=== PATIENT | male | born 1995 | race Caucasian/White ===

== ENCOUNTER 2022-05-19 10:39 | Emergency (ER) | payer OTHER, SELFPAY ==
--- NOTE | ~2022-05-19 | XR_ITS ---
EXAMINATION: XR FINGER, LEFT CLINICAL INFORMATION: Pressurized air hit hand COMPARISON: None TECHNIQUE: Three views of the left index finger. FINDINGS: Comminuted mildly displaced fracture involving the second proximal phalanx with intra-articular extension at its proximal and distal aspect. Soft tissue swelling overlying the fracture site. Joint spaces and alignment are otherwise maintained. XR/XR finger LT min 2V IMPRESSION: 1. Comminuted mildly displaced fracture involving the second proximal phalanx with intra-articular extension at its proximal and distal aspect. 2. Soft tissue swelling overlying the fracture site.
[2022-05-19 10:42] VITALS: BP 142/83; PULSE 54; RESP 16; TEMP 36.7; O2SAT 99; BMI 23.6
--- NOTE | 2022-05-19 11:13 | ED.WOUNDLAC ---
HPI - Wound/Laceration General Chief Complaint: Wound/Laceration Stated Complaint: work INJ/finger lac. Time Seen by Provider: 05/19/22 11:03 Source: patient Mode of arrival: ambulatory Limitations: no limitations History of Present Illness HPI narrative: 26 yo male right hand dominant presents to the ER for evaluation of a left index finger injury sustained at work today. 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 He reports wounds on both sides of the finger, possibly an entry wound and an exit wound. He cannot bend the finger due to pain. He went to an Urgent care for evaluation, however they did not have x-ray services so he was told to come to the ER. He denies any numbness to the finger, just throbbing pain. He arrives with his finger wrapped in coban, bloody dressing. Onset (ago): minute(s) Extremity Location: left: hand (index finger) Place: work Patient tetanus UTD: No Context: accidental Associated symptoms: pain and unable to move injured part Treatments prior to arrival: bandage Related Data Previous Rx's Medication Instructions Recorded amoxicillin 875 mg-potassium 1 tab PO BID #14 tabs 05/19/22 clavulanate 125 mg tablet ibuprofen 600 mg tablet 600 mg PO Q8H PRN pain #20 tabs 05/19/22 oxycodone 5 mg tablet 5 mg PO Q8H PRN severe pain (scale 05/19/22 score 7-10) #6 tabs Allergies Allergy/AdvReac Type Severity Reaction Status Date / Time Unable to Assess Allergy Unverified 05/19/22 11:05 Review of Systems Review of Systems: Constitutional: No Fever, No Chills Cardiovascular: No Chest Pain, No SOB Gastrointestinal: No Nausea, No Vomiting, Musculoskeletal: + joint pain, No Myalgias Skin: + Skin Lesions, No rash Neuro: No Weakness, No Numbness, No Dizziness, No Headache Psych: + Anxiety/Panic Heme/Lymph: +Bruising, No Lymphadenopathy PMFSH Social History Social History Advance Directives: No Advance Directives Information Provided: No Physical Exam Vital Signs: Vital Signs: Last Vital Signs Temp 98.1 F 05/19/22 10:42 Pulse 54 05/19/22 10:42 Resp 16 05/19/22 10:42 BP 142/83 H 05/19/22 10:42 Pulse Ox 99 05/19/22 10:42 O2 Del Method 05/19/22 10:42 BMI result Body Mass Index 23.6 Appearance: Alert. Oriented X3. No acute distress. HEENT: normal inspection CVS: Normal heart rate and rhythm. Pulses normal. Respiratory: No respiratory distress. Skin: Skin warm and dry. Normal skin color. Normal skin turgor. No rashes. Extremities: left index finger with generalized swelling of the entire digit, on the palmar aspect of the finger there is 2 small ecchymotic areas and punctate wound with pulsitile bleeding. on the dorsal aspect of the finger over the PIP joint there is an irregular wide wound with oozing and irregular borders. cap refill <3 sec. normal adduction and abduction of the digits. Neuro: Oriented X 3. unable to flex the PIP joint of the left index finger, minimal flexion at the DIP joint. Course Course Course Narrative: 18-year-old male presents to the ER for evaluation of left index finger injury from a pressure valve. he has wounds over the PIP joint and a small puncture wound with bruising on the palmar aspect of the finger, both actively oozing. He is unable to flex at the PIP joint due to pain. Concern for fracture. Also concern for possible foreign body. X-rays pending. Will give tetanus shot, pain control and repair the wounds. He will need follow-up with hand specialist. Reevaluation(s) Reevaluation #1: X-ray with comminuted mildly displaced fracture involving the 2nd proximal phalanx with intra-articular extension at its proximal and distal aspect. Soft tissue swelling overlying the fracture site. Wound was extensively irrigated. See procedure notes. Sutures were used to control the bleeding on the palmar aspect and to reapproximate the edges of the wound on the PIP joint. Active oozing still on the PIP joint wound, Surgicel applied as well as a dry sterile dressing, finger was splinted. Orthopedics was contacted and he will follow-up in the office. Will give antibiotics for open fracture. We discussed wound care and additional dressings supply was provided. He is stable for discharge home with outpatient follow-up. Procedures Laceration Laceration 1: Site: hand Side (If applicable): left Size (cm): 2 Description: stellate, irregular and contaminated Depth: involves muscle layer Local Anesthetic: lidocaine 1% Pre-repair: wound explored and irrigated extensively Skin layer closed with: nylon Size (cm): 4-0 Number of sutures: 3 Technique: simple, interrupted Laceration 2: Site: hand Side (If applicable): left Size (cm): 0.5 Description: irregular and other (punctate, actively bleeding) Local Anesthetic: lidocaine 1% Pre-repair: wound explored and irrigated extensively Skin layer closed with: nylon Size (cm): 4-0 Number of sutures: 1 Technique: simple, interrupted Nerve Block Nerve Block 1: Time out performed: Yes Local Anesthetic: lidocaine 1% Amount of anesthesia used (mL): 6 Side: left Nerve Blocks: digital Procedure Successful: Yes Patient Tolerated Procedure: well and no complications Complications: bleeding Orthopedic Splinting/Casting Injury #1: Side: left Upper Extremity Injury Location: finger Upper Extremity Immobilizer: finger (other) and terrance tape Discharge Plan Discharge Clinical Impression: Open finger fracture Patient Disposition: Home, Self-Care Instructions: Finger Fracture (ED) Additional Instructions: Your x-ray today showed an extensive fracture of your left middle finger. XR read: comminuted mildly displaced fracture involving the 2nd proximal phalanx with intra-articular extension at its proximal and distal aspect. Soft tissue swelling overlying the fracture site It is important that you take the prescribed antibiotics to help prevent infection. Take the prescribed ibuprofen around the clock for pain and swelling. Take the prescribed oxycodone as needed for severe pain. Recommend elevating and icing your finger as often as possible. Change the dressing daily. Do not get wet. You will need the sutures out in 7 days. Recommend following up with the hand specialist, name and number below. They are aware of your case and will be calling you to arrange an appointment. Where the provided splint to immobilize the finger and allow healing. You can take it off to shower only. If you develop new or worsening symptoms call 911 or come back to the ER for further evaluation. Prescriptions: New amoxicillin-pot clavulanate 875-125 mg tablet 1 tab PO BID Qty: 14 0RF ibuprofen 600 mg tablet 600 mg PO Q8H PRN (Reason: pain) Qty: 20 0RF oxycodone 5 mg tablet 5 mg PO Q8H PRN (Reason: severe pain (scale score 7-10)) Qty: 6 0RF Rx Instructions: Partial Fill upon patient request. Referrals: [facility] [Provider Group] [facility] [Provider Group] Interventions: ED Discharge Assessment Last Done: 05/19/22 13:11 Discharge Date/Time: 05/19/22 13:13
[2022-05-19] MEDS: Diphth,Pertus(ACell),Tet Adult 0.5 ML SYRINGE IM (12:23)
[2022-05-19] MEDS: Ibuprofen 600 MG TABLET PO (12:25)
[2022-05-19] MEDS: Lidocaine HCl 1 % 20 ML VIAL 30 ML INFILTRATI (12:26)
== END 2022-05-19 13:13 | disposition home or self-care (01) ==
PROVIDERS: Emergency Provider Emergency Medicine
DX: S61.211A Laceration without foreign body of left index finger without damage to nail, initial encounter (principal); S60.512A Abrasion of left hand, initial encounter; M79.642 Pain in left hand; Y28.9XXA Contact with unspecified sharp object, undetermined intent, initial encounter; Y93.9 Activity, unspecified; Y92.9 Unspecified place or not applicable; Y99.0 Civilian activity done for income or pay; Y29.XXXA Contact with blunt object, undetermined intent, initial encounter; Z79.899 Other long term (current) drug therapy
CPT/HCPCS: 12001; 29130; 73140; 90471; 90715; 99283; 99284

== ENCOUNTER 2022-05-25 18:00 | Outpatient (REF) | payer OTHER, SELFPAY ==
--- NOTE | ~2022-05-25 | XR_ITS ---
EXAMINATION: XR HAND, LEFT CLINICAL INFORMATION: Pain in left hand COMPARISON: 05/19/2022 TECHNIQUE: PA, lateral, and oblique views of the left hand. FINDINGS: Comminuted fracture of the second proximal phalanx with extension to the second proximal interphalangeal joint again seen. Although there is a thin lucency, there is no definite offset at the base of the phalanx to confirm extension to the metacarpophalangeal joint. Similar degree of displacement. The fracture lines remain readily evident. No fracture callus seen. No additional fractures. Soft tissue swelling is improved. XR/XR hand LT min 3V IMPRESSION: Similar appearance of comminuted mildly displaced fracture of the second proximal phalanx with intra-articular extension to the PIP joint.
== END 2022-05-25 18:01 | disposition home or self-care (01) ==
LOC: HO.HOSX 18:00
PROVIDERS: Visit Provider Orthopaedic Surgery
DX: M79.642 Pain in left hand (principal)
CPT/HCPCS: 73130

== ENCOUNTER → 2022-05-26 12:21 | Outpatient (BNVA) | payer OTHER, SELFPAY | PROVIDERS: Visit Provider Orthopaedic Surgery | DX: S62.611B Displaced fracture of proximal phalanx of left index finger, initial encounter for open fracture (principal) | CPT/HCPCS: 99202 ==

== ENCOUNTER 2022-06-01 11:34 | Day surgery (SDC) | payer OTHER, SELFPAY ==
--- NOTE | 2022-05-27 10:00 | HO.ANESPROP2 ---
Documented by User: Zaina Gilliam NP 05/27/22 10:01 HPI - Anesthesia Eval Consult details Narrative: 26yo M for Left Index Finger Fx CRPP vs ORIF, Left I&D Index finger PMFSH Active Problems Active Problems: All Active Problems (Updated 05/26/22 @ 13:46 by Hayder Talbert) Open fracture of proximal phalanx of left index finger (Acute) Surgical History Surgical History (Updated 06/01/22 @ 15:19 by Grecia Salcido MD) History of tooth extraction Social History Social History (Updated 06/01/22 @ 15:21 by Grecia Salcido MD) Patient Tobacco Use Status: Former Tobacco user Quit Date: 2015 Use of substances other than those prescribed or required for medical reasons: Yes Substance Use Type: Marijuana Substance Use Frequency: Monthly Last Used Substance: Hours (ago) Last Used Substance Other:: Yesterday Currently Displaying Signs/Symptoms of Drug Intoxication Withdrawal: No Are you DNR?: No Advance Directives: No Advance Directives Information Provided: Yes Current occupational status: employed 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 Allergies Allergy/AdvReac Type Severity Reaction Status Date / Time No Known Allergies Allergy Verified 05/26/22 12:52 Exam Exam Date and Time: May 27, 2022 1000 Assessment and Plan Assessment Anesthesia Assessment: Chart Reviewed Documented by User: Grecia Salcido MD 06/01/22 15:25 PMFSH Family History Family history of problems with anesthesia: No Surgical History Surgical History (Updated 06/01/22 @ 15:19 by Grecia Salcido MD) History of tooth extraction History of Problems with Anesthesia: No Social History Social History (Updated 06/01/22 @ 15:21 by Grecia Salcido MD) Patient Tobacco Use Status: Former Tobacco user Quit Date: 2015 Use of substances other than those prescribed or required for medical reasons: Yes Substance Use Type: Marijuana Substance Use Frequency: Monthly Last Used Substance: Hours (ago) Last Used Substance Other:: Yesterday Currently Displaying Signs/Symptoms of Drug Intoxication Withdrawal: No Are you DNR?: No Advance Directives: No Advance Directives Information Provided: Yes Current occupational status: employed 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 Good extension ) Loose/Missing/Broken Teeth: Yes (Extraction) Heart: RRR Lungs: CTAB Assessment and Plan Assessment Anesthesia Assessment: Anesthesia Plan Discussed Final Anesthetic Review Family History of Problems with Anesthesia: No History of Problems with Anesthesia: No NPO: Yes ASA Class: II Final Preanesthetic Review: No Changes in Pt Med Stat, Meds/Allgs Chart Reviewed, Consent Obtained/Reviewed and Anes Risks/Benef Reviewed Patient Risk: Low Procedure Risk: Low Assessment/Block/Sedation in SS: Assess/Block/Sedation-SS Anesthetic Plan Anesthetic Plan: GA Disposition: Standard PACU
--- NOTE | ~2022-06-01 | FL_ITS ---
EXAMINATION: XR FLUOROSCOPY WITH IMAGES CLINICAL INFORMATION: Second finger or internal fixation proximal phalanx fracture. COMPARISON: 05/26/2022 and 05/19/2022. TECHNIQUE: Fluoroscopy performed by Dr. Jeniffer Vaughn. Fluoroscopy time: 89.52 seconds. Cumulative Dose: 2.0164 mGy. DAP: 0.1219 Gycm2. Images: 13. FINDINGS: Intraoperative imaging demonstrates screw and K-wire placement for comminuted fracture second proximal phalanx. FL/FL guidance in OR IMPRESSION: Fluoroscopy intraoperatively for orthopedic procedure.
[2022-06-01 14:21] VITALS: BMI 24.5
[2022-06-01 14:34] VITALS: BP 130/77; PULSE 54; RESP 16; TEMP 36.8; O2SAT 99
[2022-06-01] MEDS: Lactated Ringers 1,000 ML 100 ML IVCONT (14:35)
--- NOTE | 2022-06-01 15:28 | MHC.SHP ---
Pre-Procedural Eval Section A Date of Service: 06/01/22 The patient is an INPATIENT: No Changes since office visit: No Cold of Flu in the past 2 weeks, No New Medical Problems, No Changes in Medication and No Patient answered all questions The History & Physical has been completed within 30 days and I have reviewed it.: Yes Section B Chief Complaint: Displaced fracture of proximal phalanx of left ind Allergies: Allergies Allergy/AdvReac Type Severity Reaction Status Date / Time No Known Allergies Allergy Verified 05/26/22 12:52 Plan I have reviewed the history and physical and performed a pertinent physical examination on my patient. No changes have occurred unless specified.
--- NOTE | 2022-06-01 15:29 | P.OP_ITS ---
Operative Note Operative Note Date of Service: 06/01/22 Narrative: Operative Note Narrative: Preop diagnosis: 1. open left index finger open comminuted distal intra-articular fracture Postop diagnosis: Same Procedure: 1. left index finger proximal phalanx open reduction internal fixation Surgeon: Jeniffer Vaughn MD Anesthesia: General Anesthesia Findings: left index finger comminuted shaft fracture extending into distal articular surface. Both the dorsal and volar wounds appear to be well healed now and with no evidence of infection. He already has some evidence of interval bony healing with only minimal motion with pistoning of the fracture site. Implants: 0.045 K-wires times 2, and 1 Raymond 2.0 mm x 10 mm cannulated cortical screw Tourniquet time: 35 minutes EBL: Minimal Specimen: None Drains: None Complications: None Disposition: Brought to the recovery room in stable condition Plan: Follow-up in 10-14 days for a wound check, postop radiographs and for placement in a short-arm finger spica cast Anticipate K-wire removal in 3-4 weeks based on interval bony healing Educate the patient that full fracture healing anticipated in approximately 8-12 weeks. Indications: The patient is 26 years old with an open left index finger proximal phalanx fracture from a compressed air injury . The risks and benefits of operative treatment, including but not limited to risk of damage to blood vessels, nerves, tendons, infection, recurrence, delayed or nonunion of fracture, persistent pain or numbness, incomplete resolution of preoperative symptoms, or need for further surgery were discussed with the patient and they wished to proceed with surgery. Procedure: Once consent was obtained patient was brought back to the operating suite and placed in the operating table in a supine position. . Perioperative antibiotics and general anesthesia was administered by the anesthesia team. A tourniquet was applied to the proximal aspect of the left upper extremity and the limb was prepped and draped in a standard surgical fashion. the limb was elevated and exsanguinated with an Esmarch bandage and the tourniquet inflated to 250 mmHg for a total tourniquet time of 35 minutes.. The FluoroScan was used during the case to assist with our fracture reduction and placement of all implants. The patient is now 2 weeks out from his injury. This is a highly comminuted fracture. Both the dorsal and volar wounds are now well healed and there is no evidence of infection after oral antibiotic treatment. The fracture was evaluated fluoroscopically, and again we saw a the significant comminution of the shaft of the proximal phalanx with extension into the distal articular surface. Pistoning of the fracture showed only minimal motion at the fracture site indicating early evidence of interval bony healing. His clinical and radiographic fracture alignment was satisfactory. I elected not to open the fracture site for an I and D, as 2 weeks after his injury we had no evidence of infection, he had completed his oral antibiotics, and I did not want to disturb the bony healing at this complex fracture site. I did however feel he would benefit from improving the reduction and fixation at the articular surface. A tenaculum was used to compress the fracture at the distal articular site. We were able to improve the reduction by closing down the displacement. I then made a 1 cm longitudinal incision over the ulnar aspect of the distal aspect of the proximal phalanx. The incision was made through the skin to the subcutaneous tissues. I then dissected down to the ulnar cortex. I then passed the guidewire for the Raymond 2.0 cannulated screw set. This was passed from ulnar to radial just proximal to the articular surface. I then reamed over this guidewire using the long slender Reamer for the 2.0 mm cannulated screw set. We measured for a 12 mm x 2 mm cortical screw. I also used the short fat cannulated Reamer to open up the near cortex for placement of the screw. The screw was then advanced over fracture site. I was pleased with the improved reduction but felt that the screw was somewhat proud radially. The screw was then removed and replaced with a 10 mm x 2 mm cortical screw. I then passed the 1st of 20.045 K-wires through the ulnar base of the proximal phalanx. This was then advanced distally across our fracture site to where it impacted our screw. I then passed a 2nd 0.045 K-wire through the radial base of the proximal phalanx. This was advanced across our fracture site and to the distal ulnar aspect of the proximal phalanx. I was satisfied with our fixation on fluoroscopic images, and also with our clinical alignment. I saw no rotational or angular malalignment. Once satisfied with our fracture reduction and implant placement, the K-wires were bent and cut short and pin caps applied. Final fluoroscopic images were then obtained. The wounds were copiously irrigated with normal saline. The skin edges were reapproximated with some 5 0 nylon suture material. A digital block was performed using some 0.5% plain ropivacaine. A Sterile dressing and short volar splint extending to the forearm was applied. The patient appears to have jose erated the procedure well and with no complications. All digits were well vascularized at the conclusion of the case.
[2022-06-01 17:21] VITALS: BP 115/65; PULSE 60; RESP 15; TEMP 36.2; O2SAT 100
[2022-06-01 17:26] VITALS: BP 120/70; PULSE 58; RESP 16; O2SAT 98
[2022-06-01 17:31] VITALS: BP 109/62; PULSE 67; RESP 16; O2SAT 100
[2022-06-01 17:36] VITALS: BP 126/76; PULSE 92; RESP 16; TEMP 36.3; O2SAT 100
[2022-06-01 17:51] VITALS: BP 130/76; PULSE 66; RESP 16; TEMP 36.7; O2SAT 100
== END 2022-06-01 18:25 | disposition home or self-care (01) ==
PROVIDERS: Visit Provider Orthopaedic Surgery
PROC: (CPT 26735; principal; 2022-06-01 14:10)
PROC: (CPT 26735; 2022-06-01 14:10)
DX: S62.611B Displaced fracture of proximal phalanx of left index finger, initial encounter for open fracture (principal); M79.642 Pain in left hand; R20.0 Anesthesia of skin; X58.XXXA Exposure to other specified factors, initial encounter; Y93.89 Activity, other specified; Y92.89 Other specified places as the place of occurrence of the external cause; Y99.0 Civilian activity done for income or pay
CPT/HCPCS: 26735; C1713; J0171; J0690; J1100; J2250; J2405; J2795; J3010

== ENCOUNTER 2022-06-15 10:49 | Outpatient (REF) | payer OTHER, SELFPAY ==
--- NOTE | ~2022-06-15 | XR_ITS ---
EXAMINATION: XR HAND, LEFT CLINICAL INFORMATION: Pain COMPARISON: May 1822 TECHNIQUE: PA, lateral, and oblique views of the left hand. FINDINGS: 2 pins and compression screws seen in the proximal phalanx of second finger. Fragments are close to anatomical alignment. Fracture is still visualized. Soft tissues are unremarkable. XR/XR hand LT min 3V IMPRESSION: Status post ORIF of fracture of the proximal phalanx of second finger.
== END 2022-06-15 10:50 | disposition home or self-care (01) ==
LOC: HO.HOSX 10:49
PROVIDERS: Visit Provider Orthopaedic Surgery
DX: M79.642 Pain in left hand (principal)
CPT/HCPCS: 73130

== ENCOUNTER 2022-06-29 16:29 | Outpatient (REF) | payer OTHER, SELFPAY ==
--- NOTE | ~2022-06-29 | XR_ITS ---
EXAMINATION: XR HAND, LEFT CLINICAL INFORMATION: Pain, left hand. COMPARISON: 06/16/2022 TECHNIQUE: PA, lateral, and oblique views of the left hand. FINDINGS: A pin has been removed. Once again comminuted fracture of the proximal phalanx of the 2nd digit is noted. This is intimately involved with the fracture site. The screw remains unchanged in position distally. XR/XR hand LT min 3V IMPRESSION: Only one pin is now seen entering from the radial aspect into the fracture region from the base of the proximal phalanx. Once again comminuted fracture of the proximal phalanx not significantly changed in position from previous. Fracture lines are still well visible. The screw in the distal aspect of the proximal phalanx is unchanged in position.
== END 2022-06-29 16:30 | disposition home or self-care (01) ==
LOC: HO.HOSX 16:29
PROVIDERS: Visit Provider Orthopaedic Surgery
DX: M79.642 Pain in left hand (principal)
CPT/HCPCS: 73130

== ENCOUNTER 2022-07-13 14:10 | Outpatient (REF) | payer OTHER, SELFPAY ==
--- NOTE | ~2022-07-13 | XR_ITS ---
EXAMINATION: XR HAND, LEFT CLINICAL INFORMATION: Follow-up fracture index finger. COMPARISON: Left hand 06/30/2022 TECHNIQUE: PA, lateral, and oblique views of the left hand. FINDINGS: There is solitary screw traversing from the dorsal aspect distal end of the proximal phalanx index finger stabilizing comminuted fracture mid segment. There is no callus formation seen. Previously seen solitary pin on the last exam has been removed. There is now slight diastases seen in the fracture fragments. The soft tissues are normal. XR/XR hand LT min 3V IMPRESSION: Internal fixation of comminuted fracture mid segment proximal phalanx index finger with a solitary screw. There is no callus formation seen at this time. Solitary pin at the fracture site has been removed. There is mild diastases of the fracture fragments.
== END 2022-07-13 14:11 | disposition home or self-care (01) ==
LOC: HO.HOSX 14:10
PROVIDERS: Visit Provider Orthopaedic Surgery
DX: Z13.89 Encounter for screening for other disorder (principal)

== ENCOUNTER → 2022-08-18 13:48 | Outpatient (BNVA) | payer OTHER, SELFPAY | PROVIDERS: Visit Provider Orthopaedic Surgery | DX: Z13.89 Encounter for screening for other disorder (principal) ==

== ENCOUNTER 2022-09-15 11:16 | Outpatient (REF) | payer OTHER, SELFPAY ==
--- NOTE | ~2022-09-15 | XR_ITS ---
EXAMINATION: XR HAND, LEFT CLINICAL INFORMATION: Fracture follow-up, pain COMPARISON: Radiographs 07/15/2022 TECHNIQUE: PA, lateral, and oblique views of the left hand. FINDINGS: Interval partial healing of the comminuted fracture of the 1st proximal phalanx. Longitudinal fracture lines are less conspicuous. The distal transverse screw is in stable position. No new abnormality. XR/XR hand LT min 3V IMPRESSION: Partial healing of the 1st proximal phalanx fracture.
== END 2022-09-15 11:17 | disposition home or self-care (01) ==
LOC: HO.HOSX 11:16
PROVIDERS: Visit Provider Orthopaedic Surgery
DX: S62.611B Displaced fracture of proximal phalanx of left index finger, initial encounter for open fracture (principal)
CPT/HCPCS: 73130; 99212

== ENCOUNTER 2022-10-27 09:32 | Outpatient (REF) | payer OTHER, SELFPAY | END 2022-10-27 09:33 | disposition home or self-care (01) | LOC: HO.HOSX 09:32 | PROVIDERS: Visit Provider Orthopaedic Surgery | DX: Z13.89 Encounter for screening for other disorder (principal) ==

== ENCOUNTER 2022-11-05 15:30 | Outpatient (RCR) | payer OTHER, MEDICAID, SELFPAY ==
--- NOTE | 2022-08-13 10:29 | MHC.OT.EP ---
[address] [phone] Occupational Therapy Plan of Care Date of Evaluation: 08/13/22 Diagnosis: Left index finger fracture Assessment: Pt. is a 26 y/o male s/p work related injury where a pressurized tank exploded, causing left index finger proximal phalanx open comminuted intra-articular fracture. He underwent ORIF with PP & I&D. Date of injury: 05/19/22. Pt is healing well and has returned to work with a 3lb weight restriction. 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 Pt. would benefit from skilled OT services to address ROM, desensitizing, and strengthening to increase function and return to PLOF. Frequency and Duration: The patient will be seen 2x/wk for 6 weeks Short Term Goals: Decrease left index finger pain to <2/10 w/ functional tasks IND with HEP Improve left index finger PIP flexion by 10 degrees IND with scar massage and desensitizing techniques Alf Goals: Pain free with BADL's/IADL's Pt. will make full composite fist to safely grasp heavy objects Gross grasp >50# Quick DASH <15% Treatment Plan: Therapeutic Exercise Therapeutic Activity Home Exercise Program Patient Education Desensitization/Sensory Re-ed Paraffin Fluidotherapy MHP Joint Mobilization Soft Tissue Mobilization Electronically Signed By: Mary Beth Connors MS OTR/L Please Sign and return to therapist. Thank you once again for your referral.
--- NOTE | 2022-10-06 16:34 | MHC.OT.OP ---
[address] [phone] F: [phone] Occupational Therapy Progress Note Diagnosis: Left index finger fracture Date of Surgery: 06/01/22 Date of Evaluation: 08/13/22 Treatments to Date: 13 Cancellations to Date: No Shows to Date: Subjective: 10/06/22 It still numb. 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 Wakes in am with left hand numbness Pain Score: 1 Pain Location: Left index finger Objective Measures: 10/06/22 AROM INDEX PIP 10/50 DEG PROM 70 deg DIP 55 PROM 70 Quick DASH 34 pts . Positive Carpal compression test on left. 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 He will benefit from increased wear time of his dynamic flexion splint around his work and home activities as he is able. 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 will make full composite fist to safely grasp heavy objects Gross grasp >50# Quick DASH <15% Frequency and Duration: The patient will be seen 2x wk x 4 wks Treatment Plan: Therapeutic Exercise Therapeutic Activity Home Exercise Program Splinting Neuro Re-ed Ultrasound Paraffin Joint Mobilization Electronically Signed By: Lyndsey White OT CHT CLT Reviewed/agree with student documentation: Therapist:
--- NOTE | 2022-11-05 16:12 | MHC.OT.DC ---
[address] [phone] F: [phone] Occupational Therapy Discharge Note Patient Name: Vladislav Winslow Provider: Jenfifer Vaughn Diagnosis: Left index finger fracture Date of Surgery: 06/01/22 Date of Evaluation: 08/13/22 Date of Discharge: 11/05/22 Treatments to Date: 20 Cancellations to Date: 1 Discharge Status: Achieved Goals Improved Function Independent with HEP Discharge Summary: Cain has been seen for 20 OT visits and has progressed very well. Functional gains as follows: Pt. is pain free at rest and has only minimal pain with forceful grasp. 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 Pt is able to make near full fist of left hand is he is safely carrying heavy items and has resumed lifting at the gym without fear of loosing grasp. Index finger ROM is PIP 10/50 DEG PROM 80 deg DIP 55/70. Pt is IND with scar management techniques and is very compliant with all home exercise programs. At this time, pt is in agreement with discharge and will continue with home program. Electronically Signed By: Mary Beth Connors MS OTR/L Reviewed/agree with student documentation: Therapist: Please Sign and return to therapist, thank you for your referral.
== END 2022-11-05 16:13 | disposition home or self-care (01) ==
LOC: HO.OT 15:30
PROVIDERS: Visit Provider Orthopaedic Surgery
DX: S62.611B Displaced fracture of proximal phalanx of left index finger, initial encounter for open fracture (principal)
CPT/HCPCS: 29125; 29131; 97018; 97035; 97110; 97140; 97165; 97760

== ENCOUNTER 2023-06-24 09:36 | Emergency (ER) | payer OTHER, SELFPAY ==
--- NOTE | ~2023-06-24 | XR_ITS ---
EXAMINATION: XR FOOT, RIGHT CLINICAL INFORMATION: Direct trauma to the foot. Pain COMPARISON: None available. TECHNIQUE: AP, lateral, and oblique views of the right foot. FINDINGS: No fracture, dislocation or destructive process. XR/XR foot RT min 3V IMPRESSION: Normal right foot.
--- NOTE | ~2023-06-24 | XR_ITS ---
EXAMINATION: XR ANKLE, RIGHT CLINICAL INFORMATION: Lateral pain COMPARISON: None available. TECHNIQUE: AP, lateral, and mortise views of the right ankle. FINDINGS: No fracture. Alignment is anatomic. No erosions. Joint spaces are maintained. Soft tissues are normal. XR/XR ankle RT min 3V IMPRESSION: Normal right ankle.
[2023-06-24 09:54] VITALS: BP 131/67; PULSE 67; RESP 17; TEMP 36.8; O2SAT 98; BMI 23.7
--- NOTE | 2023-06-24 10:10 | ED.LOWEXIN ---
HPI - Extremity Injury (Lower) General Chief Complaint: Extremity Injury, Lower Stated Complaint: R Foot Injury Work 06/23/23 Time Seen by Provider: 06/24/23 10:01 Source: patient, RN notes reviewed and old records reviewed Mode of arrival: ambulatory History of Present Illness HPI Narrative: 27-year-old male with no significant past medical history presenting to the ED complaining of right foot pain and swelling s/p 950 lb liquid tank rolling over foot yesterday at work. Denies injury to other area. Has been minimally ambulatory secondary to pain. Denies numbness, tingling, weakness, fever MD complaint: foot injury Related Data Previous Rx's Medication Instructions Recorded ibuprofen 600 mg tablet 600 mg PO Q8H PRN pain #20 tabs 05/19/22 Allergies Allergy/AdvReac Type Severity Reaction Status Date / Time No Known Allergies Allergy Verified 09/15/22 14:19 Review of Systems Review of Systems: Constitutional: No Fever, No Chills ENT/Mouth: No Ear Pain, No Nasal Congestion, No sore throat, No Rhinorrhea, No Swallowing Difficulty Cardiovascular: No Chest Pain, No SOB Respiratory: No Cough Gastrointestinal: No Nausea, No Vomiting, No Abdominal pain Musculoskeletal: + joint pain, No Myalgias, + Joint Swelling Skin: No Skin Lesions, No rash Neuro: No Weakness, No Numbness, No Paresthesias Yes all other systems are reviewed and are negative Constitutional: Constitutional: Reports as per [facility] Past Medical History Attestation statement: The following information was validated with the patient. 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 Physical Exam Vital Signs: Vital Signs: Last Vital Signs Temp 98.2 F 06/24/23 09:54 Pulse 67 06/24/23 09:54 Resp 17 06/24/23 09:54 BP 131/67 06/24/23 09:54 Pulse Ox 98 06/24/23 09:54 O2 Del Method Room Air 06/24/23 09:54 BMI result Body Mass Index 23.7 Const: General: cooperative, healthy appearing and no acute distress Orientation/consciousness: patient oriented x3 Limitations: no limitations HEENT: Head: Yes normal to inspection and Yes atraumatic Ears: hearing grossly normal bilaterally General nose exam: Normal external nose present Face and sinus: Yes normal facial exam Eyes: General: appearance normal, both eyes and all related structures EOM: EOMs intact bilaterally Neck: Neck: Yes normal visual inspection and Yes no meningeal signs Resp: Effort & Inspection: normal respiratory effort and no respiratory distress Cardio: Rate: regular rate Peripheral pulses: Peripheral pulses 2+ throughout Skin: Rashes: no rashes Wounds: no wounds Neuro: General: patient oriented x3, tone normal and no meningeal signs Cranial nerves: Yes CN's II-XII intact bilaterally Gait exam (Neuro): Normal gait present Extrem: Other: Right foot with mild swelling > lateral aspect with healing ecchymosis. Tender to palpation. ROM to toes intact. Neurovascular intact. Right ankle without deformity, nontender, full range of motion intact. Course Course Course Narrative: XR foot RT min 3V IMPRESSION: Normal right foot. XR ankle RT min 3V IMPRESSION: Normal right ankle. >> Veto wrap and air cast applied. Patient has crutches. Results discussed with patient including worrisome signs and symptoms and strict return precautions, and when to return to the emergency department. They verbalized understanding and feel safe for discharge at this time. Medical Decision Making Medical Decision Making MDM Narrative: 27-year-old male with no significant past medical history presenting to the ED complaining of right foot pain and swelling s/p 950 lb liquid tank rolling over foot yesterday at work. On exam vital signs stable, NAD, nontoxic appearing, physical exam as noted above. Concern for foot fracture versus sprain. Low suspicion for ankle injury. No evidence of septic joint/arthritis or Achilles rupture Plan: X-rays Please refer to course for remaining clinical decision making, interpretation of labs/imaging results, and discussions with consultants and/or family members. Differential Diagnosis Differential Diagnoses: The differential diagnosis associated with the presentation includes As above Independent Interpretation I performed an independent interpretation of an: Plain X-Ray Radiology Impression Discussion of test interpretation with radiology: I have reviewed the radiologist's reading. External Record Review External record reviewed: Inpatient record, Office record, Outpatient record, Prior outpatient labs, Prior outpatient radiology, Primary care record and Outside ED record Tests considered The following testing was considered but not selected: As above Prescription Management I considered prescription management with: Pain Medication Procedures Orthopedic Splinting/Casting Injury #1: Side: right Lower Extremity Injury Location: ankle and foot Lower Extremity Immobilizer: AirCast and Veto wrap Other Orthopedic Equipment: crutches Discharge Plan Discharge Clinical Impression: Foot sprain Patient Disposition: Home, Self-Care Instructions: Foot Sprain (ED) Additional Instructions: Your x-rays are unremarkable Wear Veto wrap and Aircast as needed. Use crutches as needed Bear weight as tolerated Ice and elevate Take Tylenol and Motrin for pain/swelling Follow-up with her doctor and [facility] Prescriptions: No Action ibuprofen 600 mg tablet 600 mg PO Q8H PRN (Reason: pain) Qty: 20 0RF Referrals: [facility] [Outside] Stand Alone Forms: Work/School Release Interventions: ED Discharge Assessment Last Done: 06/24/23 11:29 Discharge Date/Time: 06/24/23 11:29
== END 2023-06-24 11:29 | disposition home or self-care (01) ==
PROVIDERS: Emergency Provider Emergency Medicine
DX: S93.601A Unspecified sprain of right foot, initial encounter (principal); M79.671 Pain in right foot; M25.571 Pain in right ankle and joints of right foot; Y29.XXXA Contact with blunt object, undetermined intent, initial encounter; Y93.9 Activity, unspecified; Y92.9 Unspecified place or not applicable; Y99.9 Unspecified external cause status; Z87.891 Personal history of nicotine dependence
CPT/HCPCS: 29515; 73610; 73630; 99282; 99283

== ENCOUNTER 2023-07-15 09:30 | Emergency (ER) | payer OTHER, SELFPAY ==
--- NOTE | ~2023-07-15 | CT_ITS ---
EXAMINATION: CT ABDOMEN AND PELVIS WITHOUT CONTRAST CLINICAL INFORMATION: Abdominal pain. COMPARISON: None available. TECHNIQUE: Multidetector volumetric imaging was performed from the superior aspect of the liver through the pubic symphysis. Sagittal and coronal reformatted images were obtained on the technologist's workstation. This CT examination was performed using dose optimization techniques as appropriate, variously including the following: *Automated exposure control *Adjustment of mA and/or kV according to patient size (this includes techniques or standardized protocols for targeted exams where dose is matched to indication/reason for exam; i.e. extremities or head) *Use of iterative reconstruction technique DLP: 245 mGy-cm FINDINGS: The lack of intravenous contrast limits evaluation of the solid visceral organs including the liver, spleen, pancreas, and kidneys. LUNG BASES: The visualized lung bases are unremarkable. LIVER, GALLBLADDER, AND BILIARY TREE: The liver is normal in size, shape, and attenuation. No focal hepatic lesion or biliary ductal dilatation is present. The gallbladder is unremarkable with no evidence of radiopaque gallstones, gallbladder wall thickening, or obvious pericholecystic inflammatory changes. PANCREAS: Limited noncontrast examination. No significant peripancreatic fat stranding or free fluid. No main ductal dilatation. SPLEEN: Unremarkable. ADRENAL GLANDS: Unremarkable. KIDNEYS AND URETERS: The kidneys are normal in size, shape, and attenuation. No hydronephrosis, hydroureter, or calculi seen. No perinephric stranding. BLADDER: Unremarkable. GASTROINTESTINAL TRACT: The stomach and the small bowel are nondilated. Normal appendix (2:48). No significant pericolonic fat stranding or free fluid. No evidence of bowel obstruction. ABDOMINAL WALL: No significant hernia is appreciated. LYMPH NODES: Limited evaluation due to paucity of abdominal fat and lack of IV contrast without definite lymphadenopathy. VASCULAR: Limited noncontrast examination. Normal caliber abdominal aorta. PELVIC VISCERA: Unremarkable. OSSEOUS STRUCTURES: Unremarkable. CT/CT abdomen pelvis wo IV con IMPRESSION: No acute abdominal or pelvic abnormalities to explain the patient's symptoms.
[2023-07-15 09:45] VITALS: BP 139/51; PULSE 83; RESP 16; TEMP 36.6; O2SAT 98; BMI 25.7
[2023-07-15 10:27] LABS: MANUAL DIFF FLAG NO
[2023-07-15 10:29] LABS: Basophils Absolute Auto 0.1 X10*3/uL (0.0-0.2); Basophils Percent Auto 0.4 % (0-2); Eosinophils Absolute Auto 0.1 X10*3/uL (0.0-0.4); Eosinophils Percent Auto 0.8 % (0-4); Hematocrit 43.7 % (42.0-52.0); Hemoglobin 15.4 g/dl (14.0-18.0); Imm Gran Pct Auto 0.6 % (0.0-0.4); Lymphocytes Absolute Auto 1.6 X10*3/uL (1.2-4.9); Lymphocytes Percent Auto 9.2 % (20-40); Mean Corpuscular HGB Conc 35.2 g/dl (31.0-36.0); Mean Corpuscular Hemoglobin 32.2 pg (27.0-33.0); Mean Corpuscular Volume 91.4 fL (80.0-98.0); Mean Platelet Volume 8.7 fL (9.4-12.4); Monocytes Percent Auto 5.5 % (2-11); Neutrophils Absolute Auto 14.9 x10*3/uL (2.0-8.3); Neutrophils Percent Auto 83.5 % (45-73); Platelet Count 318 X10*3/uL (160-400); Red Blood Count 4.78 X10*6/uL (4.60-5.80); Red Cell Distribution Width 12.6 % (11.0-16.0); White Blood Count 17.9 X10*3/uL (4.8-10.8)
[2023-07-15 10:45] LABS: Alanine Aminotransferase 36 U/L (0-40); Albumin Level 4.5 g/dL (3.5-5.0); Alkaline Phosphatase 60 U/L (39-117); Anion Gap 11 (12-20); Aspartate Amino Transferase 31 U/L (5-37); Bilirubin Total 0.5 mg/dL (0.0-1.0); Blood Urea Nitrogen 16 mg/dL (9-16); Calcium 9.4 mg/dL (8.4-10.2); Carbon Dioxide 28 mmol/L (22-29); Chloride 106 mmol/L (96-108); Creatinine Clr Calc Pharmacy 70.1; Estimated Glomerular Filt Rate > 60; Glucose Random 122 mg/dL (60-115); Potassium 4.2 mmol/L (3.3-5.1); Sodium 141 mmol/L (135-145); Total Protein 7.5 g/dL (6.5-8.0)
[2023-07-15 13:21] LABS: Lipase 17 U/L (8-78)
--- NOTE | 2023-07-15 14:42 | ED.ABDPAIN ---
HPI - Abdominal Pain General Chief Complaint: Abdominal Pain Stated Complaint: Abd pain Time Seen by Provider: 07/15/23 19:41 Source: patient Mode of arrival: ambulatory History of Present Illness HPI narrative: 27-year-old male who states that this morning he began developing bloating with nausea and vomiting is unsure if he may have eaten any contaminated food he denies any sick contacts and states he does smoke cannabis. He otherwise denies any fevers or chills but did report some diarrhea and otherwise no dysuria. Related Data Previous Rx's Medication Instructions Recorded ibuprofen 600 mg tablet 600 mg PO Q8H PRN pain #20 tabs 05/19/22 ondansetron 4 mg disintegrating 4 mg PO Q8H PRN nausea and 07/15/23 tablet vomiting #10 tabs Allergies Allergy/AdvReac Type Severity Reaction Status Date / Time No Known Allergies Allergy Verified 09/15/22 14:19 Review of Systems Review of Systems Pertinent positives and negatives as in HPI PMFSH Past Medical History Source: nursing notes reviewed Surgical History History of tooth extraction Social History Social History Patient Tobacco Use Status: Former Tobacco user Quit Date: 2015 Substance Use Type: Marijuana Advance Directives: No Current occupational status: employed 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 GENERAL: Well developed, well nourished, in no acute distress. HEAD: Normocephalic/atraumatic EYES: PERRLA, EOMI EARS: Ext canals without abnormality NOSE: Nares patent bilateral OROPHARYNX: no oral lesions noted, posterior pharynx clear NECK: Supple, no adenopathy LUNGS: Normal breath sounds. No adventitious sounds or accessory muscle use. SpO2<98> CARDIOVASCULAR: Regular rate and rhythm without noted murmurs ABDOMEN: Soft, non-tender, non-distended with bowel sounds. MUSCULOSKELETAL: No tenderness, deformities, or effusions noted on gross inspection. EXTREMITIES: No cyanosis, clubbing or edema. SKIN: Inspection of the skin reveals no rashes NEUROLOGIC: Alert and oriented x 4. Strength and sensation to light touch were grossly intact x 4. Course Course Course Narrative: This is an RME: Additional HPI, ROS, PE not included below will be deferred to primary provider. This a 27-year-old male presenting to the emergency department for evaluation of abdominal pain, nausea and vomiting. Abdomen is diffusely tender, patient still feeling nauseous, he has been in the emergency department for last 5 hours. No sick contacts. No raw or undercooked foods. Plan: Labs, UA, CT abdomen Medical Decision Making Medical Decision Making MDM Narrative: 27-year-old male with history and clinical presentation, DDX: Viral gastroenteritis, gastritis, cannabis related nausea and vomiting, lower clinical suspicion for appendicitis or UTI. I reviewed all investigations and hematologic indices are significant for stress leukocytosis (non infectious and secondary to the stress of nausea and vomiting) with a left shift but patient is afebrile and no evidence of anemia or thrombocytopenia. Chemistry indices do not demonstrate an REBEKAH and there is no electrolyte or liver enzyme derangements. CT scan negative for evidence to suggest renal colic or appendicitis and otherwise my interpretation is in agreement with radiology's impression. 2005: Patient has had no further episodes of diarrhea and has been able to tolerate eating a bag of peanuts. He will receive Zofran and be discharged home with remaining course of Zofran and instructed to stick to a bland diet for the next 1-2 days. Differential Diagnosis Differential Diagnoses: The differential diagnosis associated with the presentation includes Please see the discussion above Admission/Observation Consideration of admission/observation: Escalation of care including admission/observation considered Please see the discussion above Lab Data [facility] Lab Attestation statement: I reviewed the patient's lab results. Please see the discussion above 07/15/23 10:22 07/15/23 10:22 Labs: Lab Results 07/15/23 Range/Units 10:22 WBC 17.9 H (4.8-10.8) X10*3/uL RBC 4.78 (4.60-5.80) X10*6/uL Hgb 15.4 (14.0-18.0) g/dl Hct 43.7 (42.0-52.0) % MCV 91.4 (80.0-98.0) fL MCH 32.2 (27.0-33.0) pg MCHC 35.2 (31.0-36.0) g/dl RDW 12.6 (11.0-16.0) % Plt Count 318 (160-400) X10*3/uL MPV 8.7 L (9.4-12.4) fL Immature Gran % (Auto) 0.6 H (0.0-0.4) % Neut % (Auto) 83.5 H (45-73) % Lymph % (Auto) 9.2 L (20-40) % Rhea % (Auto) 5.5 (2-11) % Eos % (Auto) 0.8 (0-4) % Baso % (Auto) 0.4 (0-2) % Lymph # (Auto) 1.6 (1.2-4.9) X10*3/uL Rhea # (Auto) 1.0 (0.1-1.2) X10*3/uL Eos # (Auto) 0.1 (0.0-0.4) X10*3/uL Baso # (Auto) 0.1 (0.0-0.2) X10*3/uL Abs Immat Gran (auto) 0.10 H (0.00-0.03) X10*3/uL Absolute Neuts (auto) 14.9 H (2.0-8.3) x10*3/uL Absolute Nucleated RBC 0.000 (0.0-0.012) X10*3/uL Nucleated RBC % (auto) 0.0 (0.0-0.2) /100WBC Sodium 141 (135-145) mmol/L Potassium 4.2 (3.3-5.1) mmol/L Chloride 106 (96-108) mmol/L Carbon Dioxide 28 (22-29) mmol/L Anion Gap 11 L (12-20) BUN 16 (9-16) mg/dL Creatinine 1.15 (0.5-1.4) mg/dL Estim Creat Clear Calc 70.1 Estimated GFR > 60 Random Glucose 122 H (60-115) mg/dL Calcium 9.4 (8.4-10.2) mg/dL Total Bilirubin 0.5 (0.0-1.0) mg/dL AST 31 (5-37) U/L ALT 36 (0-40) U/L Alkaline Phosphatase 60 (39-117) U/L Total Protein 7.5 (6.5-8.0) g/dL Albumin 4.5 (3.5-5.0) g/dL Lipase 17 (8-78) U/L Radiology Impression Discussion of test interpretation with radiology: I have reviewed the radiologist's reading. Radiologist Impression: Please see the discussion above Discharge Plan Discharge Clinical Impression: Gastroenteritis Patient Disposition: Home, Self-Care Instructions: Gastroenteritis (ED) Additional Instructions: 1. You are receiving a prescription for antinausea medication, use this as prescribed and continue to stay well hydrated especially with water and stick to a bland diet for the next 1-2 days. Return to the ER for any worsening symptoms. Prescriptions: New ondansetron 4 mg tablet,disintegrating 4 mg PO Q8H PRN (Reason: nausea and vomiting) Qty: 10 0RF No Action ibuprofen 600 mg tablet 600 mg PO Q8H PRN (Reason: pain) Qty: 20 0RF
[2023-07-15 20:00] VITALS: BP 124/67; PULSE 78; RESP 16; TEMP 37; O2SAT 96
[2023-07-15] MEDS: Magnesium Hydrox/Alum Hydrox 30 ML ORAL.SUSP PO (20:34)
[2023-07-15] MEDS: Ondansetron ODT 4 MG TAB.RAPDIS TRANSLINGU (20:34)
[2023-07-15] MEDS: Lidocaine HCl Viscous 2 % 15 ML SOLUTION 10 ML MUCOUS MEM (20:34)
== END 2023-07-15 20:46 | disposition home or self-care (01) ==
PROVIDERS: Physician Assistant Medical; Emergency Provider Student in an Organized Health Care Education/Training Program
DX: K52.9 Noninfective gastroenteritis and colitis, unspecified (principal); R10.9 Unspecified abdominal pain; F12.90 Cannabis use, unspecified, uncomplicated; Z87.891 Personal history of nicotine dependence
CPT/HCPCS: 36415; 74176; 80053; 83690; 85025; 99284